=== PATIENT | female | born 1970 ===

== ENCOUNTER 2016-09-28 14:28 | Outpatient (CLI) | payer OTHER ==
--- NOTE | 2016-09-28 16:07 | Mammography Report ---
BILATERAL DIGITAL SCREENING MAMMOGRAM with CAD: 09/28/16 14:28:00 CLINICAL: Routine screening. COMPARISON:09/09/15 FINDINGS: The breasts are almost entirely fatty. No mass, architectural distortion or suspicious calcifications. IMPRESSION: No mammographic evidence of malignancy. BI-RADS CATEGORY: 1 - - Negative RECOMMENDATION: Routine mammographic screening in one year. COMMENT: Patient follow-up letters are generated by our [employer] application.
== END 2016-09-28 14:29 | disposition home or self-care (01) ==
LOC: SPVWC 14:28
PROVIDERS: ATTEND Specialist
DX: Z12.31 Encounter for screening mammogram for malignant neoplasm of breast (principal)
CPT/HCPCS: 77067; G0202